=== PATIENT | male | born 1955 | race Caucasian/White ===

== ENCOUNTER 2021-07-25 17:56 | Observation (INO) ==
[2021-07-25 20:44] LABS: Basophils # (auto) 0.01 K/uL (0-0.2); Basophils % (auto) 0.1 %; Eosinophils # (auto) 0.05 K/uL (0-0.5); Eosinophils % (auto) 0.5 %; Hematocrit (blood only) 47.4 % (42-52); Hemoglobin 16.1 g/dL (14.0-18.0); Immature Granulocytes # (auto) 0.01 K/uL (0.00-0.02); Immature Granulocytes % (auto) 0.1 %; Lymphocytes # (auto) 1.31 K/uL (1.2-3.4); Lymphocytes % (auto) 11.9 %; Mean Corpuscular Hemoglobin 30.8 pg (25-34); Mean Corpuscular Volume 90.8 fL (80-100); Mean Platelet Volume 9.3 fL (7.4-10.4); Monocytes # (auto) 1.38 K/uL (0.11-0.59); Monocytes % (auto) 12.5 %; Neutrophils # (auto) 8.26 K/uL (1.4-6.5); Neutrophils % (auto) 74.9 %; Platelet Count 237 K/uL (130-400); RDW Coefficient of Variation 12.2 % (11.5-14.5); RDW Standard Deviation 40.9 fL (36.4-46.3); Red Blood Count 5.22 M/uL (4.7-6.1); White Blood Count 11.02 K/uL (4.8-10.8)
[2021-07-25 20:54] LABS: Albumin Level 3.9 gm/dl (3.4-5.0); BUN Creatinine Ratio 17.6 (10-20); Calcium 9.2 mg/dl (8.5-10.1); Creatinine Clr Calc Pharmacy 91.9 ml/min; Est GFR (African American) 104.5 ml/min; Est GFR (Non-African American) 90.1 ml/min; Potassium 3.7 mmol/L (3.5-5.1)
[2021-07-25 20:57] LABS: Albumin Globulin Ratio 1.2 (0.9-2); Bilirubin,Total 1.5 mg/dl (0.2-1); Globulin 3.3 gm/dl (2.5-4.0); Total Protein 7.2 gm/dl (6.4-8.2)
[2021-07-25] MEDS ORDERED: OPTIRAY 320 100ml IV ONE (21:59)
[2021-07-25] MEDS ORDERED: MoRPHine SULFATE 2 MG/ML CARP IV PRN (22:32)
[2021-07-25] MEDS ORDERED: ONDANSETRON INJ 2 MG/ML 2 ML VIAL IV PRN (22:32)
--- NOTE | 2021-07-25 22:40 | Emergency Department Note ---
History of Present Illness General Chief complaint: Unable to Void Stated complaint: R SIDE ABDOMINAL PAIN, BLOATED, UNABLE TO VOID Time Seen by Provider: 07/25/21 21:56 Source: patient Mode of arrival: ambulatory Limitations: no limitations History of Present Illness Provider complaint: Abdominal pain Onset (ago): hour(s) 10 Location: abdomen Radiation: non-radiation Severity: moderate Pain Consistency: + constant Maximum Pain Intensity: 6 Relieved By: + none Exacerbated By: + movement Associated symptoms: + fever/chills, + loss of appetite and + malaise; no chest pain, no nausea/vomiting or no shortness of breath Treatments prior to arrival: none This is a 65-year-old male presents emergency department complaining of abdominal pain. Patient states he felt well yesterday, however shortly after waking up and eating his usual breakfast he began noticing some dull abdominal pain. He states by lunchtime he thought perhaps he was hungry so he had some yogurt around 1130, however this did not help. He states the pain slowly worsened into the afternoon and eventually the brought him to the emergency room. No prior similar pain. Patient states it has been constant, nonradiating. He states is worse with movement. States it was worse on the right over here going over bumps in the car. Patient denies any prior abdominal surgery. Denies any recent change in diet or medications. No recent illness. He denies fevers however states he was chilled. States he did not have an appetite the rest of the day although denies any overt nausea, vomiting, or d iarrhea. Patient states he did have 1 small bowel movement earlier today, and did not notice any change in his urine. Pt seen during a time of high acuity and national emergency pandemic while weari ng PPE. Home Medications Medication Instructions Recorded Confirmed Type aspirin 81 mg chewable tablet 81 mg PO QAM 04/29/19 07/25/21 History amlodipine 5 mg tablet 5 mg PO DAILY 05/09/21 07/25/21 History atorvastatin 40 mg tablet 40 mg PO HS 05/09/21 07/25/21 History calcium 600 mg-D3 800 unit-mag11 1 tab PO DAILY 05/09/21 07/25/21 History 50 pw-ktcn-kwvwhi-darshan-s.borat tablet (Caltrate 600-D Plus Minerals) carvedilol 3.125 mg tablet 3.125 mg PO BID 05/09/21 07/25/21 History telmisartan 40 1 tab PO DAILY 05/09/21 07/25/21 History mg-hydrochlorothiazide 12.5 mg tablet Allergies Allergy/AdvReac Type Severity Reaction Status Date / Time No Known Allergies Allergy Verified 07/25/21 23:06 Past Med/Surg History Medical History Chronic low back pain Hyperlipidemia Hypertension Leg length discrepancy Osteoarthritis Surgical History History of cardiac cath History of colonoscopy History of heart artery stent 2 STENTS- DRUG ELUTING-PROMUS [id number] MAY 2011 AT [place]. FOLLOWS WITH AT [place]. 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 Beliefs That Will Affect Care: None Current Living Situation: Spouse Feels Safe at Home: Yes Assistive Devices: Glasses Review of Systems A total of 10 systems reviewed and were otherwise negative All systems reviewed & are unremarkable except as noted in HPI & below Physical Exam Vital Signs Vital Signs - 24 hr 07/25/21 18:56 07/25/21 22:19 07/26/21 00:19 Temperature 36.7 C Temperature Source Temporal Artery Scan Pulse Rate 81 Pulse Rate [Finger] 76 Pulse Strength [Finger] Normal Respiratory Rate 16 16 Respiratory Effort / Characteristics Non-Labored Spontaneous Respiratory Depth Normal Respiratory Pattern Regular Blood Pressure 151/104 H Blood Pressure [Right Arm] 150/101 H Blood Pressure Mean 119 Blood Pressure Mean [Right Arm] 117 Blood Pressure Position Sitting Blood Pressure Position [Right Arm] Lying Pulse Oximetry 100 99 Oxygen Delivery Method Room Air Room Air Room Air Sepsis Recent Fever Within 48 Hours No Sepsis New/Unexplained Change in Mental Status No Sepsis Action Taken by Nursing No Action Required 07/26/21 01:14 Temperature Temperature Source Pulse Rate Pulse Rate [Finger] Pulse Strength [Finger] Respiratory Rate Respiratory Effort / Characteristics Respiratory Depth Respiratory Pattern Blood Pressure Blood Pressure [Right Arm] Blood Pressure Mean Blood Pressure Mean [Right Arm] Blood Pressure Position Blood Pressure Position [Right Arm] Pulse Oximetry Oxygen Delivery Method Room Air Sepsis Recent Fever Within 48 Hours Sepsis New/Unexplained Change in Mental Status Sepsis Action Taken by Nursing GENERAL: alert, well appearing, well nourished, no distress, non-toxic EYE EXAM: normal conjunctiva, PERRL and EOM's grossly intact OROPHARYNX: no exudate, no erythema, lips, buccal mucosa, and tongue normal and mucous membranes are moist NECK: supple, no nuchal rigidity, no adenopathy, non-tender LUNGS: Clear to auscultation. Normal chest wall mechanics, no w/r/r HEART: no murmurs, S1 normal and S2 normal ABDOMEN: abdomen soft, right lower quadrant tenderness with palpation, normo- active bowel sounds, no masses, no rebound or guarding. Mild tympany to percussion BACK: Back is symmetrical on inspection and there is no deformity, no midline tenderness, no CVA tenderness. SKIN: no rashes and no bruising, no petechiae UPPER EXTREMITIES: upper extremities are grossly normal. FROM, nml pulses b/l. LOWER EXTREMITIES: No pitting edema. FROM, nml pulses b/l. NEURO EXAM: Normal sensorium, cranial nerves II-XII grossly intact, normal speech, no gross weakness of arms, no gross weakness of legs.Gross sensation intact. Course Course 2229: Discussed with Dr. Roman. Administered Medications Sodium Chloride (Nss 1000ml) 1,000 mls @ 125 mls/hr IV .Q8H GABI Stop: 08/24/21 22:44 Last Admin: 07/25/21 22:48 Dose: 125 mls/hr Documented by: [id number] Discontinued Medications Ampicillin Sodium/Sulbactam Sodium 3,000 mg/ Sodium Chloride 108 mls @ 200 mls/hr IV NOW STA; Protocol Stop: 07/26/21 00:19 Last Infusion: 07/26/21 01:08 Dose: 0 mls/hr Documented by: [id number] Admin: 07/26/21 00:29 Dose: 200 mls/hr Documented by: [id number] Ioversol (Optiray 320 100ml) 94 ml IV ONCE ONE Stop: 07/25/21 22:00 Last Admin: 07/25/21 21:59 Dose: 94 ml Documented by: [id number] Medical Decision Making Differential Diagnosis Differential diagnoses includes but is not limited to gastritis, peptic ulcer disease, GERD, gallbladder disease, pancreatitis, small bowel obstruction, acute coronary syndrome, pericarditis, ischemic bowel, irritable bowel disease, i rritable bowel syndrome, appendicitis, diverticulitis, malignancy, hernia, urinary tract infection, torsion, [/ectopic (if female)], perforation, trauma, infectious. Medical Records Attestation: I reviewed the patient's medical records. Home Medications Current Medication List: was personally reviewed by me Laboratory Data Attestation: I reviewed the patient's lab results. Result diagrams: 07/25/21 20:24 07/25/21 20:24 Lab Results 07/25/21 07/25/21 07/25/21 Range/Units 20:24 20:24 22:27 WBC 11.02 H (4.8-10.8) K/uL RBC 5.22 (4.7-6.1) M/uL Hgb 16.1 (14.0-18.0) g/dL Hct 47.4 (42-52) % MCV 90.8 (80-100) fL MCH 30.8 (25-34) pg MCHC 34.0 (32-36) g/dL RDW Std Deviation 40.9 (36.4-46.3) fL RDW Coeff of Jazlyn 12.2 (11.5-14.5) % Plt Count 237 (130-400) K/uL MPV 9.3 (7.4-10.4) fL Immature Gran % (Auto) 0.1 % Neut % (Auto) 74.9 % Lymph % (Auto) 11.9 % [place] % (Auto) 12.5 % Eos % (Auto) 0.5 % Baso % (Auto) 0.1 % Neut # (Auto) 8.26 H (1.4-6.5) K/uL Lymph # (Auto) 1.31 (1.2-3.4) K/uL [place] # (Auto) 1.38 H (0.11-0.59) K/uL Eos # (Auto) 0.05 (0-0.5) K/uL Baso # (Auto) 0.01 (0-0.2) K/uL Immature Gran # (Auto) 0.01 (0.00-0.02) K/uL Sodium 140 (136-145) mmol/L Potassium 3.7 (3.5-5.1) mmol/L Chloride 104 (98-107) mmol/L Carbon Dioxide 29 (21-32) mmol/L Anion Gap 7.0 (3-11) BUN 15 (7-18) mg/dl Creatinine 0.88 (0.6-1.4) mg/dl Est Cr Clr Drug Dosing 91.9 ml/min Est GFR ( Amer) 104.5 ml/min Est GFR (Non-Af Amer) 90.1 ml/min BUN/Creatinine Ratio 17.6 (10-20) Glucose 94 (70-99) mg/dl Calcium 9.2 (8.5-10.1) mg/dl Total Bilirubin 1.5 H (0.2-1) mg/dl AST 34 (15-37) U/L ALT 35 (12-78) U/L Alkaline Phosphatase 73 (45-117) U/L Total Protein 7.2 (6.4-8.2) gm/dl Albumin 3.9 (3.4-5.0) gm/dl Globulin 3.3 (2.5-4.0) gm/dl Albumin/Globulin Ratio 1.2 (0.9-2) Urine Color Yellow Urine Appearance Clear (Clear) Urine pH 7.5 (4.5-7.5) Ur Specific [place] 1.034 H (1.000-1.030) Urine Protein Negative (Negative) Urine Glucose (UA) Negative (Negative) Urine Ketones 1+ H (Negative) Urine Blood Negative (Negative) Urine Nitrite Negative (Negative) Urine Bilirubin Negative (Negative) Urine Urobilinogen Negative (Negative) Ur Leukocyte Esterase Negative (Negative) COVID-19 Eval Order SARS-CoV-2 (PCR) (Negative) 07/25/21 07/25/21 Range/Units 22:56 22:56 WBC (4.8-10.8) K/uL RBC (4.7-6.1) M/uL Hgb (14.0-18.0) g/dL Hct (42-52) % MCV (80-100) fL MCH (25-34) pg MCHC (32-36) g/dL RDW Std Deviation (36.4-46.3) fL RDW Coeff of Jazlyn (11.5-14.5) % Plt Count (130-400) K/uL MPV (7.4-10.4) fL Immature Gran % (Auto) % Neut % (Auto) % Lymph % (Auto) % [place] % (Auto) % Eos % (Auto) % Baso % (Auto) % Neut # (Auto) (1.4-6.5) K/uL Lymph # (Auto) (1.2-3.4) K/uL [place] # (Auto) (0.11-0.59) K/uL Eos # (Auto) (0-0.5) K/uL Baso # (Auto) (0-0.2) K/uL Immature Gran # (Auto) (0.00-0.02) K/uL Sodium (136-145) mmol/L Potassium (3.5-5.1) mmol/L Chloride (98-107) mmol/L Carbon Dioxide (21-32) mmol/L Anion Gap (3-11) BUN (7-18) mg/dl Creatinine (0.6-1.4) mg/dl Est Cr Clr Drug Dosing ml/min Est GFR ( Amer) ml/min Est GFR (Non-Af Amer) ml/min BUN/Creatinine Ratio (10-20) Glucose (70-99) mg/dl Calcium (8.5-10.1) mg/dl Total Bilirubin (0.2-1) mg/dl AST (15-37) U/L ALT (12-78) U/L Alkaline Phosphatase (45-117) U/L Total Protein (6.4-8.2) gm/dl Albumin (3.4-5.0) gm/dl Globulin (2.5-4.0) gm/dl Albumin/Globulin Ratio (0.9-2) Urine Color Urine Appearance (Clear) Urine pH (4.5-7.5) Ur Specific [place] (1.000-1.030) Urine Protein (Negative) Urine Glucose (UA) (Negative) Urine Ketones (Negative) Urine Blood (Negative) Urine Nitrite (Negative) Urine Bilirubin (Negative) Urine Urobilinogen (Negative) Ur Leukocyte Esterase (Negative) COVID-19 Eval Order Covid19 at [facility] SARS-CoV-2 (PCR) NEGATIVE (Negative) Imaging Data Radiologist's Impression: CT abdomen and pelvis with contrast: Appendicitis. Inflamed appendix measures approximately 12-19 mm. No abscess. Aneurysmal ascending aorta, 4.3 cm. Cortical and parapelvic renal cyst. Left renal stone. Nonspecific bowel gas pattern with some gaseous distention. Distortion in the distribution and organization of the bowel. Large heterogenous prostate. Trace fluid in the pelvis. Radiologist: Leeann Hicks MD ECG Data Attestation: I personally reviewed and interpreted this ECG as follows: Indication: + abdominal pain Rate (beats per minute): 76 Rhythm: + normal sinus ECG Intervals/blocks: + Normal QRS and + Normal QT ECG [place]: + Normal ECG ST segments: + Normal ST segments MDM Narrative This is a well-appearing 65-year-old male who presents with abdominal pain pe rsistent throughout the day. Labs drawn and sent and CT imaging ordered while patient was still in the waiting room as patient was seen on a day of high volume and high acuity. By the time I was able to evaluate the patient, labs had resulted as did CT imaging. I discussed all these results with patient at bedside. Patient does have right lower quadrant tenderness and was found to have acute appendicitis on CT. Patient was afebrile and hemodynamically stable. Case discussed with on-call general surgery Dr. Roman. Covid swab added as was EKG for preop clearance. Patient hemodynamically stable in the emergency room. An order was placed for continuous cardiac monitoring. The monitor shows a rate of __78 with _normal sinus_ rhythm. Impression & Plan Abdominal pain, Acute appendicitis Discharge Plan Visit Data Chief Complaint: Unable to Void Stated Complaint: R SIDE ABDOMINAL PAIN, BLOATED, UNABLE TO VOID ED Provider: Kellie Lindsay Discharge Problem: Abdominal pain, Acute appendicitis Patient Disposition: Admitted As Inpatient Discharge Instructions Interventions: ED Discharge Assessment Last Done: 07/26/21 01:14 Forms Stand Alone Forms: My [facility] [employer] Prescriptions Prescriptions: No Action carvedilol 3.125 mg tablet 3.125 mg PO BID RF: 0 atorvastatin 40 mg tablet 40 mg PO HS RF: 0 amlodipine 5 mg tablet 5 mg PO DAILY RF: 0 telmisartan-hydrochlorothiazid 40-12.5 mg tablet 1 tab PO DAILY RF: 0 Caltrate 600-D Plus Minerals 600 mg calcium- 800 unit-50 mg tablet 1 tab PO DAILY RF: 0 aspirin 81 mg Tablet,Chewable 81 mg PO QAM RF: 0 Referrals Referrals: Sukhwinder Crum DO [Primary Care Provider] - Discharge Problem: Abdominal pain Qualifiers: Abdominal location: right lower quadrant Qualified Code(s): R10.31 - Right lower quadrant pain Acute appendicitis Qualifiers: Acute appendicitis type: with localized peritonitis Appendicitis gangrene presence: without gangrene Appendicitis perforation presence: without p erforation Appendicitis abscess presence: without abscess Qualified Code(s): K35.30 - Acute appendicitis with localized peritonitis, without perforation or gangrene
[2021-07-25 22:46] LABS: Appearance Urine Clear (Clear); Bilirubin Urine Negative (Negative); Blood Urine Negative (Negative); Color Urine Yellow; Glucose Urine UA Negative (Negative); Ketones Urine 1+ (Negative); Leukocyte Esterase Urine Negative (Negative); Nitrite Urine Negative (Negative); Protein Urine Negative (Negative); Specific Gravity Urine 1.034 (1.000-1.030); Urobilinogen Urine Negative (Negative); pH Urine 7.5 (4.5-7.5)
--- NOTE | 2021-07-25 22:47 | Surgery Consultation ---
Date of Consultation July 25, 2021 Assessment & Plan (1) Acute appendicitis: 65 yr old man with acute appendicitis. Consented for laparascopic appendectomy. Risks of bleeding, infection, conversion to open, postop ileus/ abscess, negative appy all discussed. Consent signed. For OR tonight. History of Present Illness Reason for Consultation: acute appendicitis Requesting Physician: Kellie Lindsay MD History of Present Illness 65 yr old man with PMHx notable for CAD, hypertension, hyperlipidemia and superficial lower extremity thrombus in November 26 who presents to ER complaining of right lower quadrant abdominal pain, bloating. Pain is severe, centralized in right lower quadrant, associated with bloating. Started around 11:30 am with no precipitating factors. Worse if moved around, was able to eat lunch but then developed anorexia and has not eaten since. Dull and aching, persistent, not better if he stayed still. No relieving factors. No similar episodes. Very active typically. No longer on xarelto for the superficial venous thrombus - stopped in March. Allergies Allergy/AdvReac Type Severity Reaction Status Date / Time No Known Allergies Allergy Verified 07/25/21 23:06 Home Medications Medication Instructions Recorded Confirmed Type aspirin 81 mg chewable tablet 81 mg PO QAM 04/29/19 04/10/21 History amlodipine 5 mg tablet 5 mg PO DAILY 05/09/21 05/09/21 History atorvastatin 40 mg tablet 40 mg PO DAILY 05/09/21 05/09/21 History calcium 600 mg-D3 800 unit-mag11 1 tab PO DAILY 05/09/21 05/09/21 History 50 ts-vglt-mzprfk-darshan-s.borat tablet (Caltrate 600-D Plus Minerals) carvedilol 3.125 mg tablet 3.125 mg PO BID 05/09/21 05/09/21 History telmisartan 40 1 tab PO DAILY 05/09/21 05/09/21 History mg-hydrochlorothiazide 12.5 mg tablet Patient History Medical History Chronic low back pain Hyperlipidemia Hypertension Leg length discrepancy Osteoarthritis Surgical History History of cardiac cath History of colonoscopy History of heart artery stent 2 STENTS- DRUG ELUTING-PROMUS [id number] MAY 2011 AT [place]. FOLLOWS WITH AT [place]. HAD SOB EPISODE- HAD TWO COMPLETELY BLOCKED ARTERIES/ NO EPISODES SINCE 2010 History of tooth extraction WISDOM TEETH Family History Sister Skin cancer Social History Smoking Status: Never smoker Second Hand Exposure: No; Hx Alcohol Use: Yes Alcohol type: beer Hx Substance Use: Yes Preferred Language: Yakut Communication Ability: Effective Clinical Data Associate Required: No Beliefs That Will Affect Care: None Current Living Situation: Spouse Feels Safe at Home: Yes Assistive Devices: Glasses Review of Systems Review of Systems: All systems reviewed & are unremarkable except as noted in HPI & below Constitutional: felt chilled all day, no fever Physical Exam Constitutional: WD/WN, vitals as above Eyes: PERRL, conjunctivae normal, anicteric sclerae Respiratory: normal respiratory effort, lungs clear to auscultation Cardiovascular: RRR, no murmur, no edema Gastrointestinal (Abdomen): Inspection/Auscultation: abdomen normal to inspection and normal bowel sounds Percussion/Palpation: + abdomen tender (in RLQ), + guarding (over McBurney;s point) and abdomen soft; no hepatosplenomegaly Neurologic: moves all extremities and awake Psychiatric: A+Ox3, euthymic affect Results & Data ([facility]) Vital Signs (Past 12 Hours) Vital Signs Temp Pulse Resp BP Pulse Ox 07/25/21 18:56 36.7 C 81 16 151/104 H 100 Laboratory Results 07/25/21 07/25/21 07/25/21 Range/Units 22:27 20:24 20:24 WBC 11.02 H (4.8-10.8) K/uL RBC 5.22 (4.7-6.1) M/uL Hgb 16.1 (14.0-18.0) g/dL Hct 47.4 (42-52) % MCV 90.8 (80-100) fL MCH 30.8 (25-34) pg MCHC 34.0 (32-36) g/dL RDW Std Deviation 40.9 (36.4-46.3) fL RDW Coeff of Jazlyn 12.2 (11.5-14.5) % Plt Count 237 (130-400) K/uL MPV 9.3 (7.4-10.4) fL Immature Gran % (Auto) 0.1 % Neut % (Auto) 74.9 % Lymph % (Auto) 11.9 % [place] % (Auto) 12.5 % Eos % (Auto) 0.5 % Baso % (Auto) 0.1 % Neut # (Auto) 8.26 H (1.4-6.5) K/uL Lymph # (Auto) 1.31 (1.2-3.4) K/uL [place] # (Auto) 1.38 H (0.11-0.59) K/uL Eos # (Auto) 0.05 (0-0.5) K/uL Baso # (Auto) 0.01 (0-0.2) K/uL Immature Gran # (Auto) 0.01 (0.00-0.02) K/uL Sodium 140 (136-145) mmol/L Potassium 3.7 (3.5-5.1) mmol/L Chloride 104 (98-107) mmol/L Carbon Dioxide 29 (21-32) mmol/L Anion Gap 7.0 (3-11) BUN 15 (7-18) mg/dl Creatinine 0.88 (0.6-1.4) mg/dl Est Cr Clr Drug Dosing 91.9 ml/min Est GFR ( Amer) 104.5 ml/min Est GFR (Non-Af Amer) 90.1 ml/min BUN/Creatinine Ratio 17.6 (10-20) Glucose 94 (70-99) mg/dl Calcium 9.2 (8.5-10.1) mg/dl Total Bilirubin 1.5 H (0.2-1) mg/dl AST 34 (15-37) U/L ALT 35 (12-78) U/L Alkaline Phosphatase 73 (45-117) U/L Total Protein 7.2 (6.4-8.2) gm/dl Albumin 3.9 (3.4-5.0) gm/dl Globulin 3.3 (2.5-4.0) gm/dl Albumin/Globulin Ratio 1.2 (0.9-2) Urine Color Pending Urine Appearance Pending Urine pH Pending Ur Specific [place] Pending Urine Protein Pending Urine Glucose (UA) Pending Urine Ketones Pending Urine Blood Pending Urine Nitrite Pending Urine Bilirubin Pending Urine Urobilinogen Pending Ur Leukocyte Esterase Pending Diagnostic Findings CT scan with acute appendicitis, no perforation or abscess (1) Acute appendicitis Acute appendicitis type: with localized peritonitis Appendicitis abscess presence: without abscess Appendicitis gangrene presence: without gangrene Appendicitis perforation presence: without perforation Qualified Code(s): K35.30 - Acute appendicitis with localized peritonitis, without perforation or gangrene
[2021-07-25] MEDS: SODIUM CHLORIDE 0.9% 1000ML 1,000 ML IV SCH (22:48)
[2021-07-25] MEDS ORDERED: BUPIVACAINE 0.5 % 5 MG/1 ML MPF 30ML VIAL ONE (23:37)
[2021-07-25] MEDS ORDERED: fentaNYL citrate 100 MCG/2 ML VIAL ONE (23:38)
[2021-07-25] MEDS ORDERED: MIDAZOLAM HCL 1 MG/ML 2ML VIAL ONE (23:38)
[2021-07-25] MEDS ORDERED: AMPICILLIN/SULBACTAM SOD 3,000 MG in 0.9 % SODIUM CHLORIDE 100 ML IV STA (23:47)
--- NOTE | 2021-07-26 00:05 | Anesthesiology Consultation ---
Date of Service July 26, 2021 Assessment & Plan (1) Encounter for pre-operative examination: Chart Review Chart Review: Acceptable Risk for Surgery History Surgery Operation Date: 07/26/21 00:00 Proposed Procedures p Laparoscopic Appendectomy - Little Roman MD Height/Weight Height: 6 ft Weight: 89.9 kg Allergies Allergy/AdvReac Type Severity Reaction Status Date / Time No Known Allergies Allergy Verified 07/25/21 23:06 Medications Home Medications Medication Instructions Recorded Confirmed Last Taken aspirin 81 mg chewable tablet 81 mg PO QAM 04/29/19 07/25/21 07/25/21 amlodipine 5 mg tablet 5 mg PO DAILY 05/09/21 07/25/21 07/25/21 atorvastatin 40 mg tablet 40 mg PO HS 05/09/21 07/25/21 07/24/21 calcium 600 mg-D3 800 unit-mag11 1 tab PO DAILY 05/09/21 07/25/21 07/25/21 50 jm-dlsy-tennne-darshan-s.borat tablet (Caltrate 600-D Plus Minerals) carvedilol 3.125 mg tablet 3.125 mg PO BID 05/09/21 07/25/21 07/25/21 08:00 telmisartan 40 1 tab PO DAILY 05/09/21 07/25/21 07/25/21 mg-hydrochlorothiazide 12.5 mg tablet Active Medications Generic Name Dose Route Start Last Admin Trade Name Freq PRN Reason Stop Dose Admin Sodium Chloride 1,000 mls @ 125 mls/hr 07/25/21 22:45 07/25/21 22:48 Nss 1000ml IV 08/24/21 22:44 125 mls/hr .Q8H GABI Administration Past Medical History Medical History Chronic low back pain Hyperlipidemia Hypertension Leg length discrepancy Osteoarthritis Past Family History Family History Sister Skin cancer Past Surgical History Surgical History History of cardiac cath History of colonoscopy History of heart artery stent 2 STENTS- DRUG ELUTING-PROMUS [id number] MAY 2011 AT [place]. FOLLOWS WITH AT [place]. HAD SOB EPISODE- HAD TWO COMPLETELY BLOCKED ARTERIES/ NO EPISODES SINCE 2010 History of tooth extraction WISDOM TEETH Social History Smoking Status: Never smoker Hx Alcohol Use: Yes Alcohol type: beer alcohol intake frequency: 0-2 drinks per day Hx Substance Use: Yes substance use type: does not use Physical Exam Vital Signs Last Vital Signs Temp 36.7 C 07/25/21 18:56 Pulse 81 07/25/21 18:56 Resp 16 07/25/21 18:56 BP 151/104 H 07/25/21 18:56 Pulse Ox 100 07/25/21 18:56 Testing Laboratory Results 07/25/21 20:24 07/25/21 20:24 Urine Color Yellow 07/25/21 22:27 Urine Appearance Clear (Clear) 07/25/21 22:27 Urine pH 7.5 (4.5-7.5) 07/25/21 22:27 Ur Specific [place] 1.034 (1.000-1.030) H 07/25/21 22:27 Urine Protein Negative (Negative) 07/25/21 22:27 Urine Glucose (UA) Negative (Negative) 07/25/21 22:27 Urine Ketones 1+ (Negative) H 07/25/21 22:27 Urine Nitrite Negative (Negative) 07/25/21 22:27 Ur Leukocyte Esterase Negative (Negative) 07/25/21 22:27 Electrocardiogram Date: 07/25/21 Findings: + NSR @ (32)
[2021-07-26] MEDS ORDERED: fentaNYL citrate 100 MCG/2 ML VIAL IV PRN (01:31)
[2021-07-26] MEDS ORDERED: ONDANSETRON INJ 2 MG/ML 2 ML VIAL IV PRN ×2 (01:31→16:55)
[2021-07-26] MEDS ORDERED: ATROPINE SULFATE 0.1 MG/ML 10ML SYR IV PRN (01:31)
[2021-07-26] MEDS ORDERED: KETOROLAC 30 MG/ML VIAL IV PRN (01:31)
[2021-07-26] MEDS ORDERED: LABETALOL HCL IV 5 MG/ML 20ML IV PRN (01:31)
--- NOTE | 2021-07-26 02:32 | Operative Report ---
Post Operative Report Pre & Post Diagnosis Operation Date: 07/26/21 00:00 Pre-Op Diagnosis: Acute Appendicitis Post-Op Diagnosis: Acute Appendicitis I identified the patient and participated in the time-out.: Yes Procedure Operation Date: 07/26/21 00:00 Actual Procedures p Laparoscopic Appendectomy - Little Roman MD Surgeon Little Roman MD Plaque Maker none Estimated Blood Loss 5 Findings Consistent with Post-Op Diagnosis acute near gangrenous appendicitis Fluids 800 cc Specimens appendix Drains none Anesthesia Type General Complications none Disposition Accompanied Patient To Recovery: No Disposition: Recovery Room Indications 65 yr old man with acute appendicitis. Description of Procedure The patient received unasyn and had SCD's placed preoperatively. After the induction of GET, he was positioned with his left arm tucked. He had voided prior to the procedure so a tellez was not placed. His abdomen was clipped and then sterilely prepped and draped. After time out, he was positioned in trendelenberg. A supraumbilical incision was made and the veress needle placed into the peritoneal cavity. This was tested with the saline drop test. Initial pressure was 1 mmHG and this was taken to 15 mmHg. A 12 mm trocar was placed with the camera through the port. Two 5 mm trocars were then placed under direct vision - one in the left lower quadrant, another in the midline pubic area. The appendix was seen just inferior and lateral to the base of the cecum, adherent with fibrinous debris to the lateral side wall. The tip was near gangrenous. The appendix was grasped and a window created on the base of the cecum. The inflammatory changes did not extend to this point. The appendix was divided off of the cecum with a firing of the 45 mm purple load stapler. The mesentary was taken with a second firing of a the torres load. The appendix was placed in an endobag and removed through the umbilical incision. Hemostasis was noted to be present. The area was irrigated and suctioned. The trocars were removed after pneumoperitoneum was released. The fascia of the umbilical incision was closed with 0 vicryl sutures. The skin of all three incisions was closed with 4-0 monocryl suture. 30 cc of 0.5% marcaine was used as local anesthesia. Steristrips and sterile dressings were applied. He was awakened and taken to recovery in stable condition. I attest to the content of the Intraoperative Record and any orders documented therein. Any exceptions are noted below.
[2021-07-26] MEDS ORDERED: METOCLOPRAMIDE HCL INJ 5 MG/ML 2 ML VIAL ONE (02:47)
[2021-07-26] MEDS ORDERED: PROPOFOL IV EMULSION 10 MG/ML 20 ML VIAL IV ONE (02:47)
[2021-07-26] MEDS ORDERED: GLYCOPYRROLATE 0.2 MG/ML VIAL ONE (02:47)
[2021-07-26] MEDS ORDERED: ONDANSETRON INJ 2 MG/ML 2 ML VIAL ONE (02:47)
[2021-07-26] MEDS ORDERED: ROCURONIUM BROMIDE 10 MG/ML 5 ML VIAL IV ONE (02:47)
[2021-07-26] MEDS ORDERED: NEOSTIGMINE METHYLSULFATE 1 MG/ML 10ML VIAL ONE (02:47)
--- NOTE | 2021-07-26 03:03 | Anesthesiology Progress Note ---
Date of Service July 26, 2021 Anesthesia Post Procedure Vital Signs Vital Signs: Temp Pulse Pulse Pulse Resp BP BP 07/26/21 02:39 36.5 C 83 16 150/104 H 07/26/21 00:19 76 16 150/101 H 07/25/21 18:56 36.7 C 81 16 151/104 H Pulse Ox 07/26/21 02:39 94 07/26/21 00:19 99 07/25/21 18:56 100 Pain Intensity Lower Abdomen: Pain Intensity: 3 Transfer of Care Handoff Completed per policy Notes Mental Status: alert / awake / arousable Patient Amnestic to Procedure: Yes Nausea / Vomiting: adequately controlled Pain: adequately controlled Airway Patency, RR, SpO2: stable & adequate BP & HR: stable & adequate Hydration State: stable & adequate Anesthetic Complications: no major complications apparent
[2021-07-26] MEDS ORDERED: MoRPHine SULFATE 2 MG/ML CARP IV PRN (03:30)
[2021-07-26] MEDS ORDERED: ACETAMINOPHEN 325 MG TAB PO PRN (03:30)
[2021-07-26] MEDS ORDERED: oxyCODONE/ACETAMINOPHEN 5mg/325mg TAB PO PRN ×2 (03:30)
[2021-07-26] MEDS ORDERED: MoRPHine SULFATE 4 MG/ML 1 ML CARP\\VIAL IV PRN (03:30)
[2021-07-26] MEDS: AMPICILLIN/SULBACTAM SOD 1,500 MG in 0.9 % SODIUM CHLORIDE 100 ML IV SCH ×4 (06:13→23:39)
[2021-07-26] MEDS: SODIUM CHLORIDE 0.9% 1000ML 1,000 ML IV SCH (07:26)
[2021-07-26] MEDS ORDERED: PNEUMOCOCCAL POLYSACCHARIDES 25 MCG/0.5 ML VIAL/SYR IM ONE (08:00)
[2021-07-26] MEDS: ASPIRIN 81 MG ECTAB PO SCH (08:35)
[2021-07-26] MEDS: CALCIUM 600MG + VIT D 400 IU TAB PO SCH (08:35)
[2021-07-26] MEDS: TELMISARTAN 40 MG TAB PO SCH (08:35)
[2021-07-26] MEDS: HEPARIN SOD 5,000 UNIT/0.5 ML VIAL SQ SCH ×2 (08:36→22:07)
[2021-07-26] MEDS ORDERED: hydroCHLOROthiazide 25 MG TAB PO SCH (09:00)
[2021-07-26] MEDS ORDERED: amLODIPine BESYLATE 5 MG TAB PO SCH (09:00)
[2021-07-26] MEDS ORDERED: carvediloL 3.125 MG TAB PO SCH (09:00)
--- NOTE | 2021-07-26 09:19 | Electrocardiogram Report ---
Test Reason : Blood Pressure : / mmHG Vent. Rate : 070 BPM Atrial Rate : 070 BPM P-R Int : 184 ms QRS Dur : 102 ms QT Int : 430 ms P-R-T Axes : 046 006 014 degrees QTc Int : 464 ms Normal sinus rhythm Left atrial enlargement Possible Old Septal infarct Abnormal ECG When compared with ECG of 03-MAY-2019 08:27, Borderline Criteria for Septal infarct is now Present Confirmed by Serg Kelsey ([id number]) on 07/26/2021 9:18:43 AM Referred By: REFERRED SELF Confirmed By:Serg Kelsey
--- NOTE | 2021-07-26 09:28 | Electrocardiogram Report ---
Test Reason : Blood Pressure : / mmHG Vent. Rate : 076 BPM Atrial Rate : 076 BPM P-R Int : 174 ms QRS Dur : 098 ms QT Int : 422 ms P-R-T Axes : 049 029 033 degrees QTc Int : 474 ms Normal sinus rhythm Normal ECG When compared with ECG of 25-JUL-2021 20:22, Criteria for Septal infarct are no longer Present Confirmed by Serg Kelsey ([id number]) on 07/26/2021 9:28:07 AM Referred By: REFERRED SELF Confirmed By:Serg Kelsey
--- NOTE | 2021-07-26 09:49 | CT Scan Report ---
ABDOMEN AND PELVIS CT WITH IV CONTRAST CT DOSE: 381.52 mGy.cm HISTORY: Right lower quadrant abdominal pain. TECHNIQUE: Multiaxial CT images of the abdomen and pelvis were performed following the use of intrave nous contrast. A dose lowering technique was utilized adhering to the principles of ALARA. COMPARISON STUDY: Abdominal ultrasound 07/16/2018. FINDINGS: Mild dependent changes seen at the lung bases. No pneumoperitoneum. No pneumatosis. No frac tures. The liver, gallbladder, pancreas, and spleen are unremarkable. Normal adrenal glands. Multiple bilateral peripelvic and cortical renal cysts are noted. No definite hydronephrosis. Mild bilateral perinephric edema. This is likely chronic. No retroperitoneal lymphadenopathy. Mild bladder wall thic kening. This is likely secondary to the enlarged prostate gland. Tiny fat-containing left inguinal he rnia. Trace pelvic free fluid. No evidence for small bowel obstruction. Dilated and thickened appendi x with mild periappendiceal fat stranding and a 7 mm appendicolith. The tip the appendix measures 13 mm in diameter. Findings are consistent with acute appendicitis. No perforation or abscess at this ti me. The main portal vein is patent. Mild calcified plaque within the normal caliber abdominal aorta. Ascending thoracic aorta measures up to 4.3 cm in diameter. There is a 4 mm stone within the left kid margy. IMPRESSION: 1. Acute appendicitis. No perforation or abscess. 2. Left-sided nephrolithiasis. No hydronephrosis. 3. Multiple bilateral peripelvic and cortical renal cysts again noted. 4. Mild aneurysmal dilatation of the ascending thoracic aorta measuring up to 4.3 cm in diameter. ACT 112: Negative or not required by law. Electronically signed by: Troy Orozco M.D. 07/26/2021 9:48 AM
--- NOTE | 2021-07-26 10:38 | Discharge Summary ---
Date of Service July 26, 2021 Admission HPI Per Admitting Provider 5 yr old man with PMHx notable for CAD, hypertension, hyperlipidemia and superficial lower extremity thrombus in November 26 who presents to ER complaining of right lower quadrant abdominal pain, bloating. Pain is severe, centralized in right lower quadrant, associated with bloating. Started around 11:30 am with no precipitating factors. Worse if moved around, was able to eat lunch but then developed anorexia and has not eaten since. Dull and aching, persistent, not better if he stayed still. No relieving factors. No similar episodes. Very active typically. No longer on Xarelto for the superficial venous thrombus - stopped in March. Principal Diagnosis Acute appendicitis Discharge Exam Constitutional WD/WN, vitals as above no acute distress and not ill appearing Respiratory normal respiratory effort; no respiratory distress, no labored breathing and no retractions Gastrointestinal (Abdomen) Inspection/Auscultation: abdomen normal to inspection and + abdominal surgical incision (covered with dry dressings); abdomen not distended Percussion/Palpation: + abdomen tender (tender at incision sites, appropriate postop) and abdomen soft; no guarding and abdomen not rigid Skin no rashes, warm and dry Psychiatric A+Ox3, euthymic affect Discharge Data Allergies Allergy/AdvReac Type Severity Reaction Status Date / Time No Known Allergies Allergy Verified 07/25/21 23:06 Consultations 07/25/21 22:35 ED Decision to Admit Stat Procedures Performed Operation Date: 07/26/21 00:00 Actual Procedures p Laparoscopic Appendectomy - Little Roman MD Ordered Studies 07/25/21 20:36 CT abd pelvis IV con only Urgent Hospital Course (1) Acute appendicitis: Patient was taken to operating room for laparoscopic appendectomy possible open by Dr. Roman. Patient found to have acute appendicitis with near gangrenous appendicitis of the tip of the appendix. No perforation or abscess. Patient tolerated procedure without any difficulty and transferred to pacu then to medical/surgical floor for postop care. His diet was advanced to full liquids, activity as tolerated, PO Percocet, Tylenol and Morphine prn pain, IV Unasyn for postoperative antibiotics, and Heparin SQ for DVT prophylaxis. POD # 0 about 6 hours postop, afebrile, vitals stable, pain controlled, tolerated full liquids. Diet advanced for lunch. Encouraged to ambulate. Patient was discharged in afternoon on POD # 0 after two doses of IV Unasyn. Total Time Total Time Spent Total Time Spent (In Minutes): 30 Total Time Includes: Examination of the Patient, Discharge Planning and Medication Reconciliation Discharge Plan Discharge Items Patient Disposition: Home - Self-Care Reason For Visit: ACUTE APPENDICITIS Discharge Diagnosis: Acute appendicitis Activity: Per Instructions section Non-emergency contact: Surgeon Call non-emergency contact if: you have any medication questions, your pain is not controlled, your pain is worsening, you have a fever, your temperature is above 101, your wound has increased redness, your wound has increased drainage and your wound pain has increased Follow-up/Referrals: Little Roman MD [Physician] - Sukhwinder Crum DO [Primary Care Provider] - Diet: Regular Addtl Attending Provider Instructions: Post-Surgical ~Discharge Instructions Activity Recommendations: - lifting limitation: (10 pounds for 2 weeks), - exercise/sex/sports limit: (nonstrenuous for 2 weeks), - driving or machine use limit: (none for 1 week or until pain free and no longer taking narcotic pain medication), - Shower/bathe limit: (may shower beginning tomorrow) Diet: - Resume previous diet SPECIAL CARE INSTRUCTIONS: - May shower. Let water run over area and pat dry. Do not submerge incisions underwater for 2 weeks. - Leave steri strips on for one week and then remove. They may fall off on their own that is okay. - Call the surgeon's office with any questions or concerns - - (ex. temperature higher than 101 degrees F, excessive bleeding or pain). MEDICATIONS: - Resume previous medications unless instructed otherwise by your surgeon. - May alternate extra strength Tylenol and Ibuprofen as needed for mild to moderate pain -650 mg Tylenol every 6 hours as needed - Ibuprofen 600 mg every 6 hours as needed (take with food) - Percocet 1 every 4 hours, as needed for moderate to severe pain - Recommend daily stool softener (Colace) while taking narcotic pain medication to prevent constipation or straining. FOLLOW UP VISIT: - If not already scheduled, please call the office to schedule a two week follow-up appointment. Office number Pending Studies at Discharge: Yes (appendix pathology, will be reviewed at follow-up visit) Stand-Alone Forms: [facility], Smoking Cessation Medications and DC Order Prescriptions: Continued carvedilol 3.125 mg tablet 3.125 mg PO BID RF: 0 atorvastatin 40 mg tablet 40 mg PO HS RF: 0 amlodipine 5 mg tablet 5 mg PO DAILY RF: 0 telmisartan-hydrochlorothiazid 40-12.5 mg tablet 1 tab PO DAILY RF: 0 Caltrate 600-D Plus Minerals 600 mg calcium- 800 unit-50 mg tablet 1 tab PO DAILY RF: 0 aspirin 81 mg Tablet,Chewable 81 mg PO QAM RF: 0 Admission Data Admit Date/Time: 07/26/21 02:36 Attending Provider: Little Roman Admit Provider: Little Roman Primary Care Provider: Sukhwinder Crum. Other Providers: Little Roman
[2021-07-26] MEDS: SODIUM CHLORIDE 0.9% 500 ML IV SCH ×3 (11:07→23:44)
[2021-07-26 11:31] LABS: BUN Creatinine Ratio 12.9 (10-20); Calcium 8.3 mg/dl (8.5-10.1); Creatinine Clr Calc Pharmacy 78.5 ml/min; Est GFR (African American) 87.9 ml/min; Est GFR (Non-African American) 75.9 ml/min; Potassium 3.8 mmol/L (3.5-5.1)
[2021-07-26 11:46] LABS: Hematocrit (blood only) 38.8 % (42-52); Hemoglobin 13.2 g/dL (14.0-18.0); Mean Corpuscular Hemoglobin 30.9 pg (25-34); Mean Corpuscular Volume 90.9 fL (80-100); Mean Platelet Volume 9.3 fL (7.4-10.4); Platelet Count 219 K/uL (130-400); RDW Coefficient of Variation 12.2 % (11.5-14.5); RDW Standard Deviation 41.1 fL (36.4-46.3); Red Blood Count 4.27 M/uL (4.7-6.1)
--- NOTE | 2021-07-26 16:31 | Surgery Progress Note ---
Date of Service July 26, 2021 Assessment & Plan (1) Acute appendicitis: Plan: POD # 0 s/p laparoscopic appendectomy -afebrile, hypotensive (possibly perioperative and having home medications) - minimal to moderate postop pain, not taking any pain medication - bloating Plan: Will keep patient overnight for further observation given hypotension advised Tylenol PO as needed continue regular diet scds and Heparin for DVT prophylaxis repeat am labs Dr. Schilling has seen and examined pt, agrees with above. Admission and Anticipated Discharge Date Admission Date: July 26, 2021 Subjective patient was seen this am during rounds. around 8:30 am. Doing well, minimal pain, tolerated full liquids. No nausea or vomiting. He was then seen again with Dr. Schilling around 10:00 am. Plan was for possible discharge in afternoon after another IV dose of Unasyn. Was notified by nurse at 10:45 am that patient was dizzy sitting up in chair and bp was 70s/40's and then improved to 93/57. IV fluids were continued, cbc and bmp ordered, and diet advanced. Patient evaluated at 4:00 pm Feeling bloated, may have ate too much moderate gas pains mostly no more dizziness since this morning urinating without difficulty Physical Exam Constitutional: WD/WN, vitals as above no acute distress and not ill appearing Respiratory: normal respiratory effort; no respiratory distress, no labored breathing and no retractions Gastrointestinal (Abdomen): Inspection/Auscultation: abdomen normal to inspection; abdomen not distended Percussion/Palpation: + abdomen tender (at incision sites) and abdomen soft; no guarding and abdomen not rigid Skin: no rashes, warm and dry Psychiatric: A+Ox3, euthymic affect Results & Data ([facility]) Vital Signs (Past 12 Hours) Vital Signs Temp Pulse Pulse Resp BP BP Pulse Ox 07/26/21 14:31 36.7 C 77 18 98/62 L 97 07/26/21 13:15 74 95/65 L 96 07/26/21 10:16 74 93/57 L 07/26/21 10:10 73/48 L 76/50 L 07/26/21 07:20 36.8 C 74 20 124/79 98 07/26/21 06:32 36.9 C 77 15 121/84 99 07/26/21 05:40 36.9 C 86 15 125/81 98 07/26/21 04:32 36.7 C 78 16 134/82 97 Laboratory Results 07/26/21 07/26/21 07/25/21 Range/Units 11:01 11:01 22:56 WBC 11.00 H (4.8-10.8) K/uL RBC 4.27 L (4.7-6.1) M/uL Hgb 13.2 L (14.0-18.0) g/dL Hct 38.8 L (42-52) % MCV 90.9 (80-100) fL MCH 30.9 (25-34) pg MCHC 34.0 (32-36) g/dL RDW Std Deviation 41.1 (36.4-46.3) fL RDW Coeff of Jazlyn 12.2 (11.5-14.5) % Plt Count 219 (130-400) K/uL MPV 9.3 (7.4-10.4) fL Immature Gran % (Auto) % Neut % (Auto) % Lymph % (Auto) % Sandoval % (Auto) % Eos % (Auto) % Baso % (Auto) % Neut # (Auto) (1.4-6.5) K/uL Lymph # (Auto) (1.2-3.4) K/uL Sandoval # (Auto) (0.11-0.59) K/uL Eos # (Auto) (0-0.5) K/uL Baso # (Auto) (0-0.2) K/uL Immature Gran # (Auto) (0.00-0.02) K/uL Sodium 135 L (136-145) mmol/L Potassium 3.8 (3.5-5.1) mmol/L Chloride 103 (98-107) mmol/L Carbon Dioxide 26 (21-32) mmol/L Anion Gap 6.0 (3-11) BUN 13 (7-18) mg/dl Creatinine 1.03 (0.6-1.4) mg/dl Est Cr Clr Drug Dosing 78.5 ml/min Est GFR ( Amer) 87.9 ml/min Est GFR (Non-Af Amer) 75.9 ml/min BUN/Creatinine Ratio 12.9 (10-20) Glucose 145 H (70-99) mg/dl Calcium 8.3 L (8.5-10.1) mg/dl Total Bilirubin (0.2-1) mg/dl AST (15-37) U/L ALT (12-78) U/L Alkaline Phosphatase (45-117) U/L Total Protein (6.4-8.2) gm/dl Albumin (3.4-5.0) gm/dl Globulin (2.5-4.0) gm/dl Albumin/Globulin Ratio (0.9-2) Urine Color Urine Appearance (Clear) Urine pH (4.5-7.5) Ur Specific [place] (1.000-1.030) Urine Protein (Negative) Urine Glucose (UA) (Negative) Urine Ketones (Negative) Urine Blood (Negative) Urine Nitrite (Negative) Urine Bilirubin (Negative) Urine Urobilinogen (Negative) Ur Leukocyte Esterase (Negative) COVID-19 Eval Order SARS-CoV-2 (PCR) NEGATIVE (Negative) 07/25/21 07/25/21 07/25/21 Range/Units 22:56 22:27 20:24 WBC (4.8-10.8) K/uL RBC (4.7-6.1) M/uL Hgb (14.0-18.0) g/dL Hct (42-52) % MCV (80-100) fL MCH (25-34) pg MCHC (32-36) g/dL RDW Std Deviation (36.4-46.3) fL RDW Coeff of Jazlyn (11.5-14.5) % Plt Count (130-400) K/uL MPV (7.4-10.4) fL Immature Gran % (Auto) % Neut % (Auto) % Lymph % (Auto) % Sand[place] % (Auto) % Eos % (Auto) % Baso % (Auto) % Neut # (Auto) (1.4-6.5) K/uL Lymph # (Auto) (1.2-3.4) K/uL [place] # (Auto) (0.11-0.59) K/uL Eos # (Auto) (0-0.5) K/uL Baso # (Auto) (0-0.2) K/uL Immature Gran # (Auto) (0.00-0.02) K/uL Sodium 140 (136-145) mmol/L Potassium 3.7 (3.5-5.1) mmol/L Chloride 104 (98-107) mmol/L Carbon Dioxide 29 (21-32) mmol/L Anion Gap 7.0 (3-11) BUN 15 (7-18) mg/dl Creatinine 0.88 (0.6-1.4) mg/dl Est Cr Clr Drug Dosing 91.9 ml/min Est GFR ( Amer) 104.5 ml/min Est GFR (Non-Af Amer) 90.1 ml/min BUN/Creatinine Ratio 17.6 (10-20) Glucose 94 (70-99) mg/dl Calcium 9.2 (8.5-10.1) mg/dl Total Bilirubin 1.5 H (0.2-1) mg/dl AST 34 (15-37) U/L ALT 35 (12-78) U/L Alkaline Phosphatase 73 (45-117) U/L Total Protein 7.2 (6.4-8.2) gm/dl Albumin 3.9 (3.4-5.0) gm/dl Globulin 3.3 (2.5-4.0) gm/dl Albumin/Globulin Ratio 1.2 (0.9-2) Urine Color Yellow Urine Appearance Clear (Clear) Urine pH 7.5 (4.5-7.5) Ur Specific [place] 1.034 H (1.000-1.030) Urine Protein Negative (Negative) Urine Glucose (UA) Negative (Negative) Urine Ketones 1+ H (Negative) Urine Blood Negative (Negative) Urine Nitrite Negative (Negative) Urine Bilirubin Negative (Negative) Urine Urobilinogen Negative (Negative) Ur Leukocyte Esterase Negative (Negative) COVID-19 Eval Order Covid19 at [facility] SARS-CoV-2 (PCR) (Negative) 07/25/21 Range/Units 20:24 WBC 11.02 H (4.8-10.8) K/uL RBC 5.22 (4.7-6.1) M/uL Hgb 16.1 (14.0-18.0) g/dL Hct 47.4 (42-52) % MCV 90.8 (80-100) fL MCH 30.8 (25-34) pg MCHC 34.0 (32-36) g/dL RDW Std Deviation 40.9 (36.4-46.3) fL RDW Coeff of Jazlyn 12.2 (11.5-14.5) % Plt Count 237 (130-400) K/uL MPV 9.3 (7.4-10.4) fL Immature Gran % (Auto) 0.1 % Neut % (Auto) 74.9 % Lymph % (Auto) 11.9 % Sand[place] % (Auto) 12.5 % Eos % (Auto) 0.5 % Baso % (Auto) 0.1 % Neut # (Auto) 8.26 H (1.4-6.5) K/uL Lymph # (Auto) 1.31 (1.2-3.4) K/uL [place] # (Auto) 1.38 H (0.11-0.59) K/uL Eos # (Auto) 0.05 (0-0.5) K/uL Baso # (Auto) 0.01 (0-0.2) K/uL Immature Gran # (Auto) 0.01 (0.00-0.02) K/uL Sodium (136-145) mmol/L Potassium (3.5-5.1) mmol/L Chloride (98-107) mmol/L Carbon Dioxide (21-32) mmol/L Anion Gap (3-11) BUN (7-18) mg/dl Creatinine (0.6-1.4) mg/dl Est Cr Clr Drug Dosing ml/min Est GFR ( Amer) ml/min Est GFR (Non-Af Amer) ml/min BUN/Creatinine Ratio (10-20) Glucose (70-99) mg/dl Calcium (8.5-10.1) mg/dl Total Bilirubin (0.2-1) mg/dl AST (15-37) U/L ALT (12-78) U/L Alkaline Phosphatase (45-117) U/L Total Protein (6.4-8.2) gm/dl Albumin (3.4-5.0) gm/dl Globulin (2.5-4.0) gm/dl Albumin/Globulin Ratio (0.9-2) Urine Color Urine Appearance (Clear) Urine pH (4.5-7.5) Ur Specific [place] (1.000-1.030) Urine Protein (Negative) Urine Glucose (UA) (Negative) Urine Ketones (Negative) Urine Blood (Negative) Urine Nitrite (Negative) Urine Bilirubin (Negative) Urine Urobilinogen (Negative) Ur Leukocyte Esterase (Negative) COVID-19 Eval Order SARS-CoV-2 (PCR) (Negative) (1) Acute appendicitis Acute appendicitis type: with localized peritonitis Appendicitis abscess presence: without abscess Appendicitis gangrene presence: without gangrene Appendicitis perforation presence: without perforation Qualified Code(s): K35.30 - Acute appendicitis with localized peritonitis, without perforation or gangrene
[2021-07-26] MEDS ORDERED: ATORVASTATIN 40 MG TAB PO SCH (21:00)
[2021-07-27] MEDS: SODIUM CHLORIDE 0.9% 500 ML IV SCH ×3 (03:12→09:26)
[2021-07-27] MEDS: AMPICILLIN/SULBACTAM SOD 1,500 MG in 0.9 % SODIUM CHLORIDE 100 ML IV SCH (05:59)
[2021-07-27 06:14] LABS: Hematocrit (blood only) 32.2 % (42-52); Hemoglobin 10.9 g/dL (14.0-18.0); Mean Corpuscular Hemoglobin 30.9 pg (25-34); Mean Corpuscular Hgb Conc 33.9 g/dL (32-36); Mean Corpuscular Volume 91.2 fL (80-100); Mean Platelet Volume 9.4 fL (7.4-10.4); Platelet Count 180 K/uL (130-400); RDW Coefficient of Variation 12.3 % (11.5-14.5); Red Blood Count 3.53 M/uL (4.7-6.1); White Blood Count 6.56 K/uL (4.8-10.8)
[2021-07-27 06:40] LABS: BUN Creatinine Ratio 17.7 (10-20); Creatinine Clr Calc Pharmacy 98.6 ml/min; Est GFR (African American) 107.6 ml/min; Est GFR (Non-African American) 92.8 ml/min; Potassium 3.6 mmol/L (3.5-5.1)
[2021-07-27] MEDS: CALCIUM 600MG + VIT D 400 IU TAB PO SCH (08:53)
[2021-07-27] MEDS: ASPIRIN 81 MG ECTAB PO SCH (08:53)
[2021-07-27] MEDS: TELMISARTAN 40 MG TAB PO SCH (08:53)
[2021-07-27] MEDS: HEPARIN SOD 5,000 UNIT/0.5 ML VIAL SQ SCH (09:27)
--- NOTE | 2021-07-27 09:43 | Discharge Summary ---
Date of Service July 27, 2021 Admission HPI Per Admitting Provider 65 yr old man with PMHx notable for CAD, hypertension, hyperlipidemia and superficial lower extremity thrombus in November 26 who presents to ER complaining of right lower quadrant abdominal pain, bloating. Pain is severe, centralized in right lower quadrant, associated with bloating. Started around 11:30 am with no precipitating factors. Worse if moved around, was able to eat lunch but then developed anorexia and has not eaten since. Dull and aching, persistent, not better if he stayed still. No relieving factors. No similar episodes. Very active typically. No longer on xarelto for the superficial venous thrombus - stopped in March. Principal Diagnosis Acute appendicitis Discharge Exam Constitutional WD/WN, vitals as above no acute distress and not ill appearing Respiratory normal respiratory effort; no respiratory distress, no labored breathing and no retractions Gastrointestinal (Abdomen) Inspection/Auscultation: abdomen normal to inspection Percussion/Palpation: + abdomen tender (at incision sites) and abdomen soft; no guarding and abdomen not rigid Skin no rashes, warm and dry Psychiatric A+Ox3, euthymic affect Discharge Data Allergies Allergy/AdvReac Type Severity Reaction Status Date / Time No Known Allergies Allergy Verified 07/25/21 23:06 Consultations 07/25/21 22:35 ED Decision to Admit Stat Procedures Performed Operation Date: 07/26/21 00:00 Actual Procedures p Laparoscopic Appendectomy - Little Roman MD Ordered Studies 07/25/21 20:36 CT abd pelvis IV con only Urgent Hospital Course (1) Acute appendicitis: Patient was taken to operating room for laparoscopic appendectomy possible open by Dr. Little Roman on 07/26/21. Patient found to have acute appendicitis with gangrenous changes of this distal appendix, no perforation or abscess. Patient tolerated procedure and transferred to recovery then to medical/surgical floor for postop care. His diet was advanced to full liquids, activity as tolerated, IV unasyn for postop antibiotics, home hypertensive medications continued, IV fluids, PO Tylenol and Percocet as needed for pain. POD # 0 patient evaluated about 6 hours postop. Afebrile, vitals stable, mild postop pain, tolerating full liquids. Advised to get out of bed and ambulate and will receive a few more dose of IV Unasyn given gangrenous changes. Patient became dizzy and hypotensive with systolic bp 70's to 90's. IV fluids were continued, labs were repeated, and patient was evaluated later in the day. He had no further episodes of dizziness but was feeling bloated after lunch. Patient was kept overnight for observation given low blood pressure and distention. Home hypertensive meds were held for night and morning doses. Advised to ambulate and diet as tolerated. POD # 1 afebrile, bp 107/69 and 110/80. No further epi sodes of dizziness even with ambulating. Hgb down to 10.9 (16 preop) however he is +4 liters. Abdomen less bloated today and feeling better. Patient was discharged home on POD # 1 in stable condition. He was advised to hold his blood pressure medications and monitor his blood pressure this evening. If remains low, he is to contact his PCP in regards to further management. He may need adjustment of his medications. (2) Hypotension: course as above Total Time Total Time Spent Total Time Spent (In Minutes): 45 Total Time Includes: Examination of the Patient, Discharge Planning and Medication Reconciliation Discharge Plan Discharge Items Patient Disposition: Home - Self-Care Reason For Visit: ACUTE APPENDICITIS Discharge Diagnosis: Acute appendicitis Activity: Per Instructions section Non-emergency contact: Surgeon Call non-emergency contact if: you have any medication questions, your pain is not controlled, your pain is worsening, you have a fever, your temperature is above 101, your wound has increased redness, your wound has increased drainage a nd your wound pain has increased Follow-up/Referrals: Little Roman MD [Physician] - Sukhwinder Crum, [Primary Care Provider] - Diet: Regular Addtl Attending Provider Instructions: Post-Surgical ~Discharge Instructions Activity Recommendations: - lifting limitation: (10 pounds for 2 weeks), - exercise/sex/sports limit: (nonstrenuous for 2 weeks), - driving or machine use limit: (none for 1 week or until pain free and no longer taking narcotic pain medication), - Shower/bathe limit: (may shower beginning tomorrow) Diet: - Resume previous diet SPECIAL CARE INSTRUCTIONS: - May shower. Let water run over area and pat dry. Do not submerge incisions underwater for 2 weeks. - Leave steri strips on for one week and then remove. They may fall off on their own that is okay. - Call the surgeon's office with any questions or concerns - - (ex. temperature higher than 101 degrees F, excessive bleeding or pain). MEDICATIONS: - Resume previous medications unless instructed otherwise by your surgeon. - Would recommend holding your blood pressure medications this evening and monitor your blood pressure daily. If remains low, contact your primary care doctors office for further management. Your medications may need adjusted. - May alternate extra strength Tylenol and Ibuprofen as needed for mild to moderate pain -650 mg Tylenol every 6 hours as needed - Ibuprofen 600 mg every 6 hours as needed (take with food) FOLLOW UP VISIT: - If not already scheduled, please call the office to schedule a two week follow-up appointment. Office number Pending Studies at Discharge: Yes (appendix pathology, will be reviewed at follow-up visit) Stand-Alone Forms: My [facility] [employer], Smoking Cessation Medications and DC Order Prescriptions: Continued carvedilol 3.125 mg tablet 3.125 mg PO BID RF: 0 atorvastatin 40 mg tablet 40 mg PO HS RF: 0 amlodipine 5 mg tablet 5 mg PO DAILY RF: 0 telmisartan-hydrochlorothiazid 40-12.5 mg tablet 1 tab PO DAILY RF: 0 Caltrate 600-D Plus Minerals 600 mg calcium- 800 unit-50 mg tablet 1 tab PO DAILY RF: 0 aspirin 81 mg Tablet,Chewable 81 mg PO QAM RF: 0 Discharge Orders: Discharge Order (Routine); Ordered 07/27/21 Ordered By: Ann Mendoza Admission Data Admit Date/Time: 07/26/21 02:36 Attending Provider: Little Roman Admit Provider: Little Roman Primary Care Provider: Sukhwinder Crum. Other Providers: Little Roman
== END 2021-07-27 12:26 | disposition home or self-care (01) ==
LOC: ED 17:56 → 3E 07-26 01:14 → OR 07-26 01:14

== ENCOUNTER 2025-04-15 10:08 | Observation (INO) ==
--- NOTE | 2025-03-16 13:46 | PAT Medication Instructions ---
Medication Instructions Date of Service March 16, 2025 Home Medications Medication Instructions Recorded finasteride 5 mg tablet 5 mg PO DAILY #90 tabs 02/17/25 aspirin 81 mg chewable tablet 81 mg PO QAM amlodipine 5 mg tablet 5 mg PO HS atorvastatin 40 mg tablet 40 mg PO HS carvedilol 3.125 mg tablet 3.125 mg PO BID telmisartan 40 mg-hydrochlorothiazide 12.5 mg tablet 1 tab PO QAM multivitamin 1 tab PO QAM tamsulosin 0.4 mg capsule (Flomax) 0.4 mg PO QPM finasteride 5 mg tablet 5 mg PO DAILY Continue as directed finasteride 5 mg tablet 5 mg PO DAILY ASK your prescriber and surgeon aspirin 81 mg chewable tablet 81 mg PO QAM DO NOT take the morning of surgery telmisartan 40 mg-hydrochlorothiazide 12.5 mg tablet 1 tab PO QAM multivitamin 1 tab PO QAM Take morning of surgery With a small sip of water, OTHERWISE NOTHING TO EAT OR DRINK AFTER MIDNIGHT: carvedilol 3.125 mg tablet 3.125 mg PO BID Take evening before surgery amlodipine 5 mg tablet 5 mg PO HS atorvastatin 40 mg tablet 40 mg PO HS carvedilol 3.125 mg tablet 3.125 mg PO BID tamsulosin 0.4 mg capsule (Flomax) 0.4 mg PO QPM Other Notes If you have any questions please call us at [phone] or [phone] or [phone] or [phone]
--- NOTE | 2025-03-21 08:40 | Anesthesiology Consultation ---
Date of Service March 21, 2025 Assessment & Plan (1) Encounter for pre-operative examination: - cardiology office visit 07/23/24: "...catheterization in 2010...required stenting of his circumflex and RCA with drug-eluting stents...some lightheadedness with bending over and standing up quickly but this is not a big issue for him currently...denies any chest discomfort or increased shortness of breath...he will return to see me in about 9 months..." - Outpatient joint assessment: Patient is currently scheduled for inpatient pathway. If re-evaluated and patient/surgeon requests outpatient pathway, patient is an acceptable candidate for outpatient joint program from anesthesia standpoint pending surgeon's office assessment of pt motivation/support/completion of same day joint program preop requirements. Chart Review Chart Review: Acceptable Risk for Surgery and Patient seen in Pre Admission Testing Teaching & Discussion Pre-Anesthesia Teaching/Discussion Notes: Instructed NPO after midnight before surgery, except medications with 15 cc of water. Medication instructions provided according to the PAT guidelines. History Surgery Operation Date: 04/15/25 08:00 Proposed Procedures p Left Total Knee Arthroplasty - Ross Lagunas, Height/Weight Height: 6 ft Weight: 89 kg Allergies Allergy/AdvReac Type Severity Reaction Status Date / Time No Known Allergies Allergy Verified 03/16/25 13:02 Medications Home Medications Medication Instructions Recorded Confirmed Last Taken aspirin 81 mg chewable tablet 81 mg PO QAM 04/29/19 03/16/25 07/25/21 amlodipine 5 mg tablet 5 mg PO HS 05/09/21 03/16/25 07/25/21 atorvastatin 40 mg tablet 40 mg PO HS 05/09/21 03/16/25 07/24/21 carvedilol 3.125 mg tablet 3.125 mg PO BID 05/09/21 03/16/25 07/25/21 08:00 telmisartan 40 1 tab PO QAM 05/09/21 03/16/25 07/25/21 mg-hydrochlorothiazide 12.5 mg tablet multivitamin 1 tab PO QAM 11/07/23 03/16/25 Unknown tamsulosin 0.4 mg capsule (Flomax) 0.4 mg PO QPM 11/07/23 03/16/25 Unknown finasteride 5 mg tablet 5 mg PO DAILY #90 tabs 02/17/25 03/16/25 Unknown Past Medical History Medical History (Updated 03/21/25 @ 08:56 by Linda Morfin PA-C) BPH (benign prostatic hyperplasia) CAD (coronary artery disease) s/p DORINA to Cx and RCA in 2010, follows with [facility] cardio Cervical disc disorder at C6-C7 level with radiculopathy denies ROM limits Family history of anesthesia complication paternal aunt "allergic" to one anesthetic medication-edema and swelling H/O blood clots (~2020) "superficial blood clot" found in right calf 2020 in setting of extended sitting>blood thinner therapy for 4 months History of COVID-19 (2021) no hosp; resolved Hyperlipidemia Hypertension controlled, stable per pt 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 Exercise / Class Metabolic Activity II 4-5 Yardwork/Stairs/Walk up hill (denies chest discomfort or shortness of breath with one flight of stairs) Past Family History Family History Sister Skin cancer Other No family history of adverse response to anesthesia Past Surgical History Surgical History H/O hernia repair History of anesthesia reaction elevated BP after right knee scope at [place] 2018 low bp and dizziness after appendectomy in 2020 History of appendectomy History of arthroscopy rt knee History of colonoscopy History of heart artery stent 2010>positive stress test- 2 stents at [place] (follows with [facility] Erickson at [facility]) Hx of vasectomy [place] teeth removed Past Anesthesia History Other (elevated BP after right knee scope at [facility] 2019 low bp and dizziness after appendectomy in 2020; paternal aunt "allergic" to one anesthetic medication- edema and swelling) History of PONV No Hx of PONV and No Hx of Motion Sickness Social History Smoking Status: Never smoker Do You Dip or Chew Tobacco: No Hx Alcohol Use: Yes Alcohol type: beer alcohol intake frequency: a few times a week Hx Substance Use: No substance use type: does not use Review of Systems Occasional snoring, denies witnessed apneas. Patient denies chest pain, shortness of breath, dyspnea on exertion, reflux, fever, chills, cough, wheezing, or palpitations. Physical Exam Vital Signs Vitals BP 116/76 P 67 TEMP 98.0 SP02 98% on RA RESP 17 Physical Patient resting comfortably in chair in no acute distress, alert and oriented, responding appropriately throughout visit Full cervical extension range of motion without pain TMD 3.5 finger breadths Mallampati Score 2 Dentition: several caps, denies chipped or loose teeth, crowns, implants or bridges Lungs: normal respiratory effort. Good air movement, clear throughout to auscultation, no adventitious breath sounds Cardiac: regular rate and rhythm, no murmurs noted Carotid arteries: negative bruit bilat Lab Results Anesthesia Preop Results Results Anesthesia Widget: WBC 3.59 K/ul (4.8-10.8) L 03/21/25 Hgb 15.5 g/dl (14.0-18.0) 03/21/25 Hct 44.8 % (42.0-52.0) 03/21/25 Plt 175 K/uL (130-400) 03/21/25 Na 140 mmol/L (136-145) 03/21/25 K 3.5 mmol/L (3.5-5.1) 03/21/25 Cl 105 mmol/L (98-107) 03/21/25 CO2 29 mmol/L (21-32) 03/21/25 BUN 22 mg/dl (6-23) 03/21/25 Creat 0.82 mg/dl (0.6-1.4) 03/21/25 Glucose Level 79 mg/dl (70-99(Fasting)) 03/21/25 PT 11.4 Seconds (9.0-12.0) 03/21/25 PTT 25 Seconds (21-31) 03/21/25 INR 1.1 (0.9-1.1) 03/21/25 Blood Type B Positive 03/21/25 Antibody Screen NEGATIVE 03/21/25 Testing Electrocardiogram Date: 03/21/25 Sinus bradycardia, rate 57 bpm Chest X-Ray Date: 03/21/25 No acute findings. Other Testing Renal US 02/21/25 1. 6 mm calculus left mid kidney with no hydronephrosis. 2. Grossly stable renal cysts.
--- NOTE | 2025-04-13 12:36 | History & Physical Report ---
Date of Service April 13, 2025 Assessment & Plan (1) Osteoarthritis of left knee: We will proceed with a left total knee arthroplasty. Postoperatively, he will be started on aspirin for DVT prophylaxis and kept overnight in the hospital for postop medical management. He plans to use [place] physical therapy after discharge. History of Present Illness Chief Complaint: Osteoarthritis left knee. Primary Care Provider: Sukhwinder Crum DO Kevin is a pleasant 69-year-old male who has been dealing with chronic increasing bilateral knee pain. His left has been worse than his right. He has had multiple injections. The injections have been no longer helping. It is mostly medial-sided knee pain. X-rays have shown advanced arthritis of the left knee. After failing conservative treatment, he has elected to proceed with a left total knee arthroplasty. Allergies Allergy/AdvReac Type Severity Reaction Status Date / Time No Known Allergies Allergy Verified 03/16/25 13:02 Home Medications Medication Instructions Recorded Confirmed Type aspirin 81 mg chewable tablet 81 mg PO QAM 04/29/19 03/16/25 History amlodipine 5 mg tablet 5 mg PO HS 05/09/21 03/16/25 History atorvastatin 40 mg tablet 40 mg PO HS 05/09/21 03/16/25 History carvedilol 3.125 mg tablet 3.125 mg PO BID 05/09/21 03/16/25 History telmisartan 40 1 tab PO QAM 05/09/21 03/16/25 History mg-hydrochlorothiazide 12.5 mg tablet multivitamin 1 tab PO QAM 11/07/23 03/16/25 History tamsulosin 0.4 mg capsule (Flomax) 0.4 mg PO QPM 11/07/23 03/16/25 History finasteride 5 mg tablet 5 mg PO DAILY #90 tabs 02/17/25 03/16/25 Rx Past Med/Surg History Problem List Encounter for pre-operative examination Stone in renal pelvis Erectile dysfunction Cervical disc disorder at C6-C7 level with radiculopathy CMC arthritis Numbness and tingling in right hand Carpal tunnel syndrome Hypotension Chronic low back pain Leg length discrepancy Facet arthritis of lumbar region Trochanteric bursitis, left hip Spinal stenosis of lumbar region Osteoarthritis of right knee Osteoarthritis of left knee Medical History Family history of anesthesia complication paternal aunt "allergic" to one anesthetic medication-edema and swelling CAD (coronary artery disease) s/p DORINA to Cx and RCA in 2010, follows with [facility] cardio Cervical disc disorder at C6-C7 level with radiculopathy denies ROM limits Spinal stenosis of lumbar region denies issues chronic back pain at this time Renal stone left, f/u w/ Dr Sotomayor History of COVID-19 (2021) no hosp; resolved BPH (benign prostatic hyperplasia) 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, and bilat feet H/O blood clots (~2020) "superficial blood clot" found in right calf 2020 in setting of extended sitting>blood thinner therapy for 4 months Osteoarthritis Hyperlipidemia Hypertension controlled, stable per pt Surgical History History of anesthesia reaction elevated BP after right knee scope at [facility] 2018 low bp and dizziness after appendectomy in 2020 History of arthroscopy rt knee Hx of vasectomy H/O hernia repair History of appendectomy [place] teeth removed History of colonoscopy History of heart artery stent 2010>positive stress test- 2 stents at [place] (follows with Gilbert Erickson at [place]) Family History Sister Skin cancer Other No family history of adverse response to anesthesia Social History Smoking Status: Never smoker Second Hand Exposure: Yes (as a young child); Do You Dip or Chew Tobacco: No; Hx Alcohol Use: Yes Alcohol type: beer Hx Substance Use: No Preferred Language: Palestinian Communication Ability: Effective Visual Impairment: No Limitations Cardiac Technologist Required: No Beliefs That Will Affect Care: None Current Living Situation: Spouse Feels Safe at Home: Yes Assistive Devices: Glasses Review of Systems All systems reviewed & are unremarkable except as noted in HPI & below. Physical Exam On physical exam of the left knee, he has a slight varus deformity. Tenderness palpation of the distal medial femoral condyle and over the medial joint line.. Constitutional WD/WN, vitals as above Eyes PERRL, conjunctivae normal, anicteric sclerae ENMT external ear and nose normal, oropharynx normal Neck trachea midline, no thyromegaly Respiratory normal respiratory effort Cardiovascular RRR, no murmur, no edema Gastrointestinal (Abdomen) normal bowel sounds, soft, nontender, no hepatosplenomegaly Psychiatric A+Ox3, euthymic affect Results & Data Results & Data Laboratory Results . Diagnostic Findings X-rays of the left knee show advanced osteoarthritis with joint space narrowing, osteophyte formation, and [id number] articulation. PG Care Time/CCT Total # of Minutes Spent Total Time Spent with Patient: Total time spent is greater than 50% in coordination of care (as documented) at patient's floor/unit and/or counseling patient: Coding Level of Care Code None Diagnoses Osteoarthritis of left knee M17.12
[~2025-04-15 10:08] MED LIST: BUPIVACAINE 0.5 % 5 MG/1 ML PF 10ML VIAL ONE; ROPIVACAINE 0.5% 5 MG/ML 30 ML VIAL ONE
[2025-04-15] MEDS ORDERED: ONDANSETRON INJ 2 MG/ML 2 ML VIAL ONE (10:28)
[2025-04-15] MEDS ORDERED: PROPOFOL IV EMULSION 10 MG/ML 20 ML VIAL IV ONE ×2 (10:28→13:33)
[2025-04-15] MEDS ORDERED: MIDAZOLAM HCL 1 MG/ML 2ML VIAL ONE (10:28)
[2025-04-15] MEDS: LR 500ML BOLUS, THEN 15ML/HR IV SCH (10:40)
[2025-04-15] MEDS: LR 60ML/HR IV SCH (10:40)
[2025-04-15] MEDS: GABAPENTIN 300 MG CAP PO SCH (10:41)
[2025-04-15] MEDS: dexAMETHasone**PF** 10 MG/ML VIAL IV SCH (10:41)
[2025-04-15] MEDS: ACETAMINOPHEN 500 MG TAB PO SCH ×2 (10:41→22:06)
[2025-04-15] MEDS: FAMOTIDINE 20 MG TAB PO SCH (10:41)
--- NOTE | 2025-04-15 11:21 | History & Physical Bridge Note ---
Date of Service April 15, 2025 History & Physical Bridge Note I have examined the patient, reviewed the History & Physical and in the interval since the performance of the History & Physical I have noted the following changes of clinical significance: no changes noted
[2025-04-15] MEDS ORDERED: HYDROmorphone INJ 2 MG/ML SYR/VIAL IV PRN (11:29)
[2025-04-15] MEDS ORDERED: ATROPINE SULFATE 0.1 MG/ML 10ML SYR IV PRN (11:29)
[2025-04-15] MEDS ORDERED: PROMETHAZINE HCL 6.25 MG in SODIUM CHLORIDE 0.9% 50 ML IV PRN (11:29)
[2025-04-15] MEDS: TRANEXAMIC ACID 1,000 MG **IV Pre-op IV SCH (11:56)
[2025-04-15] MEDS: ORTHO JOINT ANESTHETIC ONE (12:45)
[2025-04-15] MEDS: ROPIV 0.5% 246mg, Ketorolac 30mg, EPINEPHrine 0.5mg in NSS INFIL SCH (13:30)
--- NOTE | 2025-04-15 13:40 | Operative Report ---
PG Post Operative Report Pre & Post Diagnosis Operation Date: 04/15/25 12:00 Pre-Op Diagnosis: Osteoarthritis of left knee Post-Op Diagnosis: Osteoarthritis of left knee I identified the patient and participated in the time-out.: Yes Procedure Operation Date: 04/15/25 12:00 Actual Procedures p Robotic Assisted Left Total Knee Arthroplasty(Left) - Ross Lagunas DO Surgeon Ross Lagunas DO Lithopone Charger Johnny Pino PA-C Estimated Blood Loss 30 Findings Consistent with Post-Op Diagnosis Specimens Left femoral and tibial bone Description of Procedure Implants used: I used a Geovanna Persona total knee arthroplasty system with a size 11 standard PS femur, G tibia, 34 oval patella, and a size 10 CPS polyethylene bearing. All components were cemented in place with Biomet cement. Jerome arrived [facility] for the above procedure. He was seen in the preoperative holding area and the operative extremity was identified and signed. he was given a preoperative antibiotic, TXA, a spinal anesthetic and an adductor nerve block. He was taken back to the operating room and laid on the table in supine position. He was given basic sedation. The operative knee was then prepped and draped in sterile fashion. A timeout was done, and the patient and the operative extremity was properly identified. A midline incision was made directly over the patella. Dissection was taken down to the extensor mechanism. A medial parapatellar arthrotomy was used. The medial retinaculum was released and the fat pad was mostly excised. The knee was flexed and the ACL, PCL, and meniscus were removed. The alignment of the knee replacement was assisted with a Panaya robotic knee. The femoral array was pinned in the distal femur and the tibial array was pinned using a percutaneous technique in the upper shaft of the tibia. The robot was appropriately calibrated and the structure of the knee was mapped out. The components were then manipulated on the screen to account for any malalignment and to assist in gap balancing. Once I was happy with the placement of the components on the screen, a distal femoral cutting guide was brought in place. The distal femur was then resected. The femur measured to be a size 11. A 4-in-1 cutting block was then put into place by the robot and 2 peg holes were drilled. The 4-in-1 cutting block was then impacted into place and anterior, posterior, and chamfer cuts were made. The cutting block was then brought down to the tibia and pinned into place. The proximal tibia was then resected. The posterior aspect of the knee was then opened up and any additional meniscus fragments and osteophytes were removed. The tibia measured to be a size G. The tibial plate was then placed in the appropriate rotation and the tibia was drilled and punched. Trial components were then placed. The patella was then everted and 9 mm was resected off the posterior aspect of the patella. The patella measured to be a size 34 oval. 3 peg holes were then drilled. A trial patella was placed. A size 10 CPS polyethylene insert was then trialed. The knee was brought through a full range of motion and felt to be stable. Trial components were then removed. The surrounding soft tissues were injected with 100 cc of an orthopedic pain control cocktail. All components were then cemented into place with Biomet cement. The final polyethylene insert was then snapped into place. Once cement was dry the tourniquet was deflated. Hemostasis was obtained. A dilute betadyne lavage was then done for 3 minutes. The joint was then irrigated with normal saline solution. The medial parapatellar arthrotomy was then closed with #1 Vicryl suture. The skin was closed with 2-0 Vicryl, 3-0V lock suture, and Solo zip line. A soft compressive dressing was placed. He was then transferred to a hospital bed and taken to the postanesthesia care unit in stable condition. He tolerated the procedure well. Johnny Pino PA-C, was present for the entire procedure. He was critical for patient positioning, prepping, draping, retraction exposure, wound closure and application of sterile dressing. I attest to the content of the Intraoperative Record and any orders documented therein. Any exceptions are noted below.
--- NOTE | 2025-04-15 14:41 | XRay Report ---
XR knee LT 1 or 2V routine HISTORY: 69 years-old Male Surgical Post Op left knee arthroplasty COMPARISON: Leg length study radiographs 05/09/2021 TECHNIQUE: 2 views of the left knee FINDINGS: Total arthroplasty with patellar resurfacing. Expected soft tissue swelling with deep tissue air. Art erial calcifications. No acute fracture or unexpected opaque foreign body. IMPRESSION: Satisfactory alignment of the total joint arthroplasty. ACT 112: Negative or not required by law. The above report was generated using voice recognition software. It may contain grammatical, syntax o r spelling errors. Electronically signed by: Alex Rivera M.D. 04/15/2025 2:39 PM
--- NOTE | 2025-04-15 15:10 | Anesthesiology Progress Note ---
Date of Service April 15, 2025 Anesthesia Post Procedure Vital Signs Vital Signs: Temp Pulse Pulse Resp BP Pulse Ox O2 Del Method 04/15/25 15:10 57 L 12 132/86 97 Room Air 04/15/25 14:55 63 16 131/84 97 Room Air 04/15/25 14:40 36.5 C 59 L 18 126/84 98 Room Air 04/15/25 14:30 61 15 136/88 98 Room Air 04/15/25 14:20 61 13 123/75 99 Oxymask 04/15/25 14:10 66 15 123/71 98 Oxymask 04/15/25 14:03 36.4 C L 71 13 117/74 96 Oxymask 04/15/25 10:34 36.7 C 60 18 147/96 H 98 Room Air O2 Flow Rate 04/15/25 15:10 04/15/25 14:55 04/15/25 14:40 04/15/25 14:30 04/15/25 14:20 2 04/15/25 14:10 4 04/15/25 14:03 6 04/15/25 10:34 Transfer of Care Handoff Completed per policy Notes Mental Status: alert / awake / arousable and participated in evaluation Nausea / Vomiting: adequately controlled Pain: adequately controlled Airway Patency, RR, SpO2: stable & adequate BP & HR: stable & adequate Hydration State: stable & adequate Neuraxial Anesthesia: was administered and sensory block is resolving Anesthetic Complications: no major complications apparent and Pt Satisfied with anesthetic care
[2025-04-15] MEDS ORDERED: HYDROmorphone INJ 0.5 MG/0.5 ML SYR IV PRN (15:45)
[2025-04-15] MEDS ORDERED: diphenhydrAMINE Capsule 25 MG CAP PO PRN (15:45)
[2025-04-15] MEDS ORDERED: METOCLOPRAMIDE HCL INJ 5 MG/ML 2 ML VIAL IV PRN (15:45)
[2025-04-15] MEDS ORDERED: ONDANSETRON INJ 2 MG/ML 2 ML VIAL IV PRN (15:45)
[2025-04-15] MEDS ORDERED: NALOXONE HCL 0.4 MG/1 ML VIAL/CARP IV PRN (15:45)
[2025-04-15] MEDS ORDERED: MAGNESIUM HYDROXIDE SUSP 30 ML UDC PO PRN (15:45)
[2025-04-15] MEDS: SODIUM CHLORIDE 0.9% 1,000 ML IV SCH (15:55)
[2025-04-15] MEDS: KETOROLAC TROMETHAMINE 15 MG/ML VIAL IV SCH (16:00)
[2025-04-15] MEDS: ASPIRIN 81 MG ECTAB PO SCH (20:38)
[2025-04-15] MEDS: DOCUSATE SODIUM 100 MG CAP PO SCH (20:38)
[2025-04-15] MEDS: TAMSULOSIN HCL 0.4 MG CAP PO SCH (20:38)
[2025-04-15] MEDS: ATORVASTATIN 40 MG TAB PO SCH (20:38)
[2025-04-15] MEDS: SENNA 8.6 MG TAB PO SCH (20:38)
[2025-04-16 05:58] VITALS: TEMP 97.7
[2025-04-16] MEDS: MULTIVITAMIN TAB PO SCH (08:05)
[2025-04-16] MEDS: FINASTERIDE 5 MG TAB PO SCH (08:05)
[2025-04-16] MEDS: hydroCHLOROthiazide 25 MG TAB PO SCH (08:05)
[2025-04-16] MEDS: LOSARTAN POTASSIUM 50 MG TAB PO SCH (08:06)
--- NOTE | 2025-04-16 09:01 | Orthopedic Progress Note ---
Date of Service April 16, 2025 Assessment & Plan (1) Status post total left knee replacement: Overall he is doing very well. He is not having much pain in the left knee. He will be seen by physical therapy today for ambulation and range of motion exercises. The nursing staff can remove the Shorty wrap and Webril and leave the Silverlon in place after physical therapy. He is on aspirin for DVT prophylaxis. He can be discharged to home later today. He will follow-up with orthopedics in 2 weeks. Lowell Brown was seen and examined at bedside this morning. Overall is doing very well. He is not having much pain in the left knee. Has been up and ambulating to the bathroom. He has no complaints.. Review of Systems All systems reviewed & are unremarkable except as noted in HPI & below. Physical Exam On physical exam of the left knee, the dressing is clean and dry. His leg is out full extension. He has active dorsiflexion plantarflexion of his left ankle.. Results & Data Results & Data Laboratory Results . Diagnostic Findings Postoperative x-rays of the left knee show the prosthesis to be in anatomic alignment without any evidence of fracture, dislocation, or loosening.. PG Care Time/CCT Total # of Minutes Spent Total Time Spent with Patient: Total time spent is greater than 50% in coordination of care (as documented) at patient's floor/unit and/or counseling patient: Coding Level of Care Code 83754 Post Operative Follow-Up Diagnoses Status post total left knee replacement Z96.652
[2025-04-16 09:26] VITALS: BP 129/84; PULSE 57; RESP 18; O2SAT 98
== END 2025-04-16 11:30 | disposition home or self-care (01) ==
LOC: 3E 10:08 → ASU 10:08